=== PATIENT | male | born 1940 | race Caucasian/White ===

== ENCOUNTER 2016-06-03 07:30 | Outpatient (RCR) | payer BC, MEDICARE, OTHER ==
[~2016-06-03 07:30] MED LIST: AMBIEN 5MG TABLE5 MG PO; AVODART 0.5MG0.5 MG PO; CARDURA 2MG2 MG PO; HCTZ 25MG TAB25 MG PO; LINZESS145CAP; LORTAB 5/500 501 TAB; MIRALAX PA17 GM/Dose PO; NEXIUM 40MG40 MG PO; STOOL SOFTENER100 M2 PO; TYLENOL 500MG500 MG PO; ULTRAM 50MG TAB50 MG PO
== END 2016-06-07 | disposition home or self-care (01) ==
LOC: WSPT
DX: M25.511 Pain in right shoulder (principal); M25.522 Pain in left elbow; M77.8 Other enthesopathies, not elsewhere classified
CPT/HCPCS: G8984-GP; G8985-GP

== ENCOUNTER 2016-06-15 16:45 | Outpatient (RCR) | payer BC, MEDICARE, OTHER | END 2016-06-17 09:15 | disposition home or self-care (01) | LOC: WSPT 16:45 | DX: M25.511 Pain in right shoulder (principal); M25.521 Pain in right elbow | CPT/HCPCS: G8985-GP; G8986-GP ==

== ENCOUNTER → 2016-09-29 | Outpatient (CLI) | payer BC, MEDICARE, OTHER | LOC: COL.VAS 07:49 | DX: I08.1 Rheumatic disorders of both mitral and tricuspid valves (principal) ==

== ENCOUNTER 2018-05-12 09:00 | Outpatient (RCR) | payer MEDICARE, OTHER | END 2018-06-24 09:38 | disposition home or self-care (01) | LOC: WSOT 09:00 | DX: G56.21 Lesion of ulnar nerve, right upper limb (principal); Z79.891 Long term (current) use of opiate analgesic; Z79.899 Other long term (current) drug therapy | CPT/HCPCS: G8987-GO; G8989-GO ==

== ENCOUNTER → 2019-12-07 | Outpatient (CLI) | payer MEDICARE, OTHER | LOC: COL.RAD 06:54 | DX: N18.30 Chronic kidney disease, stage 3 unspecified (principal); N40.0 Benign prostatic hyperplasia without lower urinary tract symptoms; N32.89 Other specified disorders of bladder; N13.30 Unspecified hydronephrosis ==

== ENCOUNTER → 2021-11-18 | Outpatient (CLI) | payer MEDICARE, OTHER | LOC: COL.VAS 11:22 | DX: M79.604 Pain in right leg (principal) ==

== ENCOUNTER 2021-12-17 09:45 | Outpatient (RCR) | payer MEDICARE, OTHER | END 2021-12-22 | disposition home or self-care (01) | LOC: WSPT | DX: M79.604 Pain in right leg (principal) ==

== ENCOUNTER 2022-06-18 14:15 | Outpatient (RCR) | payer MEDICARE, OTHER | END 2022-06-21 | disposition home or self-care (01) | LOC: WSPT | DX: M54.32 Sciatica, left side (principal) ==